=== PATIENT | male | born 1985 | race Caucasian/White ===

== ENCOUNTER → 2016-04-10 | Outpatient (CLI) | payer BC | LOC: GMA 10:05 | PROVIDERS: ATTEND Nurse Practitioner Acute Care | DX: R53.82 Chronic fatigue, unspecified (principal) ==

== ENCOUNTER 2017-06-14 06:26 | Emergency (ER) | payer BC ==
[2017-06-14] MEDS ORDERED: KETOROLAC TROMETHAMINE INJ 30 MG/ML VIAL IV ONE (06:57)
[2017-06-14] MEDS ORDERED: PROMETHAZINE HCL INJ 25 MG in SODIUM CHLORIDE 0.9% 50ML 50 ML IVPB ONE (06:58)
[2017-06-14] MEDS ORDERED: SODIUM CHLORIDE 0.9% 1000ML 1,000 ML IVS ONE (07:00)
[2017-06-14] MEDS ORDERED: SODIUM CHLORIDE 0.9% 50ML 50 ML ONE (07:02)
[2017-06-14] MEDS ORDERED: PROMETHAZINE HCL INJ 25 MG/ML VIAL ONE (07:02)
--- NOTE | 2017-06-14 07:02 | ED.PDOC ---
History of Present Illness - General Chief Complaint: GI Problem Stated Complaint: N/V, headache Time Seen by Provider: 06/14/17 06:59 Source: patient Additional Information: 33 YEAR OLD WHITE MALE ACCOMPANIED BY HIS DAD FOR EVALUATION OF HEADACHE NAUSEA TINGLING OF UPPER EXTREMITIES ONSET 5 DAYS INTERMITTANT HE IS NOT GIVING MUCH HISTORY MAY BE HE IS IN DISTRESS FROM HEADACHE HIS DAD ASSISTED INTELLING HIS HISTORY HE HAS DM HIS IS ON [place] HE HAS NO HISTORY OF MIGRAINE - History of Present Illness Timing/Duration: 1 week Improving Factors: nothing Worsening Factors: nothing Associated Symptoms: headaches, malaise, weakness Allergies/Adverse Reactions: Allergies NO KNOWN ALLERGY Allergy (Verified 06/14/17 06:47) Home Medications: Ambulatory Orders Acetamin W/Cod #3 Tab [Tylenol w/CODEINE #3] 1 ea PO Q6HR PRN #40 tab 06/14/17 Review of Systems - Review of Systems Constitutional: States: malaise, weakness EENTM: States: no symptoms reported Respiratory: States: no symptoms reported Cardiology: States: no symptoms reported Gastrointestinal/Abdominal: States: no symptoms reported Genitourinary: States: no symptoms reported Musculoskeletal: States: no symptoms reported Skin: States: no symptoms reported Neurological: States: no symptoms reported Endocrine: States: no symptoms reported Hematologic/Lymphatic: States: no symptoms reported Past Medical History (General) - Patient Medical History Hx Seizures: No Hx Stroke: No Hx Dementia: No Hx Asthma: No Hx of COPD: No Hx Cardiac Disorders: No Hx Congestive Heart Failure: No Hx Pacemaker: No Hx Hypertension: No Hx Thyroid Disease: No Hx Diabetes: No Hx Gastroesophageal Reflux: No Hx Renal Disease: No Hx Cancer: No Hx of HIV: No Hx Hepatitis C: No Hx MRSA: No Surgical History: no surgical history - Vaccination History Hx Tetanus, Diphtheria Vaccination: No Hx Influenza Vaccination: No - Social History Hx Tobacco Use: No Hx Alcohol Use: Yes - occasional Hx Substance Use: No Hx Depression: No Family Medical History - Family History Father Living Status: Still Living Physical Exam - Physical Exam General Appearance: Anxious - IS HYPERVENTILATING HAS NO MENINGEAL SIGNS , Lethargic, Obvious distress Eye Exam: bilateral normal Ears, Nose, Throat: hearing grossly normal, normal ENT inspection, normal pharynx Neck: non-tender, full range of motion, supple Respiratory: chest non-tender, lungs clear, normal breath sounds, no respiratory distress Cardiovascular/Chest: regular rate, rhythm, no edema, no gallop, no JVD, no murmur Gastrointestinal/Abdominal: normal bowel sounds, non tender, soft, no organomegaly, no pulsatile mass Neurologic: medical staff coordinator II-XII nml as tested, no motor/sensory deficits, alert, oriented x 3 Progress - Results/Orders Results/Orders: LAB DATA CT HEAD MRI BRAIN MRA HEAD ALL NORMAL PT WILL BE DISCHARGED AND ADVISED TO FOLLOW UP WITH HIS PCP Departure - Departure Clinical Impression: Head ache Time of Disposition: 12:52 Disposition: Discharge to Home or Self Care Condition: Good Departure Forms: ED Discharge - Pt. Copy, Patient Portal Self Enrollment Diet: resume usual diet Activity: increase activity as tolerated Prescriptions: Acetamin W/Cod #3 Tab [Tylenol w/CODEINE #3] 1 ea PO Q6HR PRN #40 tab PRN Reason: Mild To Moderate Pain Home Medications: Ambulatory Orders Acetamin W/Cod #3 Tab [Tylenol w/CODEINE #3] 1 ea PO Q6HR PRN #40 tab 06/14/17
[2017-06-14] MEDS ORDERED: fentaNYL CITRATE INJ 50 MCG/ML AMP IV ONE (07:36)
--- NOTE | 2017-06-14 08:28 | CT ---
EXAM DESCRIPTION: Head: Computed Tomography. CLINICAL HISTORY: Headache COMPARISON: None. TECHNIQUE: Non-helical axial scans through the skull and brain, at 2.5 mm intervals, non-contrast. Coronal and sagittal 2.0 mm reconstructions. Total Exam DLP: 752.48 mGy-cm. This exam was performed according to our departmental dose-optimization program which includes automated exposure control, adjustment of the mA and/or kV according to patient size and/or use of iterative reconstruction technique; to reduce radiation dose to as low as reasonably achievable (ALARA). FINDINGS: No hemorrhage, no mass-effect, and no midline shift. . Normal prather-white matter differentiation. No abnormal radiodense material in the brain parenchyma. Vascular calcifications present; physiologic calcifications in the pineal gland and choroid plexus. No effacement or displacement of the ventricles, CSF spaces, or subdural spaces. No extra axial fluid collection or hemorrhage. No gross abnormalities of the bony calvarium. Included paranasal sinuses and mastoid air cells are well - aerated. IMPRESSION: 1. No hemorrhage, no mass effect, no midline shift. Normal CT scan of the head without IV contrast. 2. CT scans are insensitive for detecting small CVAs in the first 24 hours after onset. Evaluation of the brain stem is also limited. If symptoms persist, consider MRI scan of the brain with diffusion imaging. Electronically signed by: Chaka Lorenzo MD 06/14/2017 8:26 AM CDT
[2017-06-14] MEDS ORDERED: DIHYDROERGOTAMINE MESYLATE 1 MG/ML VIAL IV ONE (10:26)
--- NOTE | 2017-06-14 11:51 | MRI ---
EXAM DESCRIPTION: Brain w/o Contrast: MRI. CLINICAL HISTORY: headache COMPARISON: Noncontrast MRI scan of the brain on the same visit. Noncontrast CT head scan earlier today. TECHNIQUE: Multiplanar, high-field MRI unit, multiple diffusion sequences, multiple conventional sequences without contrast. FINDINGS: Normal bilateral FLAIR and T2-weighted signal in the periventricular white matter and prather-white matter junctions of the cerebral hemispheres. . No hemorrhage or cerebral edema. Normal signal in the bilateral basal ganglia. No hemorrhage, no cerebral edema, no mass-effect. Normal signal in the brainstem and cerebellar hemispheres. No hemorrhage, no cerebral edema, no mass-effect. Metallic susceptibility artifact in the inferior right occipital scalp screening magnetic susceptibility artifact mainly on the right acetabulum on some sequences, especially diffusion. Concordance of the diffusion and non-diffusion sequences with no diffusion restriction. Artifact limits evaluation of the right cerebellar hemisphere and inferior right occipital lobe as previously described. Cortical sulci, ventricles, and other CSF spaces, and the subdural spaces are normally configured. No effacement or displacement. No midline shift. No extra-axial hemorrhage. Normal flow signal void in the major vessels of the [place], and the venous sinuses. IACs are symmetric bilaterally. Minimal fluid signal in the inferior bilateral mastoid air cells. No mass effect in the bilateral cerebellopontine angles. Pituitary gland occupies most of the sella. Base of the cerebellar tonsils is at the level of the foramen magnum. No significant abnormalities in the paranasal sinuses. The bony calvarium is intact. IMPRESSION: 1. Normal noncontrast MRI scan of the brain with no mass effect, cerebral edema, hemorrhage, or midline shift. Some sequences are affected by magnetic susceptibility artifact from object in the inferior right occipital scalp. 2. Normal noncontrast MRI diffusion scan of the brain with some distortion of sequences due to artifact as described above. 3. Inflammatory changes in the inferior bilateral mastoid air cells of unknown age and significance. These are not well seen on the prior CT scan. Other sinus cavities are unremarkable. Electronically signed by: Chaka Lorenzo MD 06/14/2017 11:49 AM CDT
--- NOTE | 2017-06-14 12:01 | MRI ---
EXAM DESCRIPTION: MRA Head and/or Neck CLINICAL HISTORY: headache COMPARISON: MRI scan of the brain without contrast and CT scan of the head without contrast today. TECHNIQUE: 3D [id number] thin-section axial acquisitions through the base of the skull and the [place]. Non contrast. MIP reconstructions. FINDINGS: Anterior circulation is unremarkable with no significant narrowing, stenosis, aneurysms, vasculitis, or mass effect. Left posterior communicating artery courses between the intracranial left ICA and the proximal left posterior cerebral artery. Posterior circulation is unremarkable with no significant narrowing, stenoses, aneurysms, vasculitis, or mass effect. IMPRESSION: Unremarkable noncontrast MRA of the brain. Electronically signed by: Chaka Lorenzo MD 06/14/2017 11:59 AM CDT
[2017-06-14 15:10] VITALS: BP 125/78; TEMP 99.8; O2SAT 96
== END 2017-06-14 13:00 | disposition home or self-care (01) ==
LOC: ER 06:26
DX: R51 Headache (principal); E11.9 Type 2 diabetes mellitus without complications; Z79.84 Long term (current) use of oral hypoglycemic drugs
CPT/HCPCS: 36415; 70450; 70544; 70551; 80053; 85025; A4216; J1110; J1885; J2060; J2550; J3010; J7030